=== PATIENT | female | born 1950 | race Caucasian/White ===

== ENCOUNTER 2021-08-15 11:06 | Observation (INO) ==
[2021-08-15 11:29] LABS: ABS Basophils 0.1 10^3/ul (0-0.2); ABS Eosinophils 0.3 10^3/ul (0-0.6); ABS Lymphocytes 2.2 10^3/ul (1.0-4.8); ABS Monocytes 0.9 10^3/ul (0-0.8); ABS Neutrophils 3.3 10^3/ul (1.5-7.7); Eosinophil % 5.1 %; Hematocrit 50 % (35-47); Hemoglobin 17.3 g/dL (12.0-16.0); Lymphocyte % 32.2 %; Mean Corpuscular HGB Conc 34 g/dL (31-36); Mean Corpuscular Hemoglobin 30 pg (27-31); Mean Corpuscular Volume 88 fL (80-97); Mean Platelet Volume 8.2 fL (7.4-10.4); Platelet Count 181 10^3/uL (150-450); Red Blood Count 5.67 10^6 /uL (3.70-4.87); Red Cell Distribution Width 14 % (10-15); White Blood Count 6.8 10^3/uL (3.5-10.8)
[2021-08-15 11:34] LABS: INR 0.95 (0.86-1.15)
[2021-08-15 11:54] LABS: High Sens Troponin Baseline < 3 pg/mL (<15)
[2021-08-15 12:32] LABS: ALT 23 U/L (7-52); AST 27 U/L (13-39); Albumin 4.6 g/dL (3.2-5.2); Albumin/Globulin Ratio 1.9 (1-3); Alkaline Phosphatase 66 U/L (35-149); Anion Gap 9 mmol/L (2-11); Blood Urea Nitrogen 21 mg/dL (6-24); CO2 Carbon Dioxide 26 mmol/L (22-32); Calcium 9.8 mg/dL (8.6-10.3); Chloride 105 mmol/L (101-111); Globulin 2.4 g/dL (2-4); Glucose 92 mg/dL (70-100); Potassium 4.3 mmol/L (3.5-5.0); Sodium 140 mmol/L (135-145); eGFR CKD-EPI 69.7 (>60)
[2021-08-15 12:40] LABS: TSH Ultra Thyroid Stim Horm 2.34 mcIU/mL (0.34-5.60)
[2021-08-15 12:58] LABS: High Sensitivity Troponin 1 Hr < 3 pg/mL (<15)
[2021-08-15 13:16] LABS: Magnesium 2.1 mg/dL (1.9-2.7)
[2021-08-15] MEDS ORDERED: Lactated Ringers 1000 ml BAG 1,000 ML IV ONE (13:36)
[2021-08-15] MEDS ORDERED: Perflutren Lipid Microsphere 3 ML VIAL ONE (16:32)
[2021-08-15] MEDS ORDERED: Enoxaparin 40 MG/0.4 ML SYR SUBCUT SCH (21:00)
[2021-08-16 08:35] VITALS: BP 106/66
== END 2021-08-16 09:39 | disposition home or self-care (01) ==
LOC: ED 11:06 → EDHOLD 11:06 → MEDTELE 16:12
PROVIDERS: ADMIT Hospitalist; ATTEND Hospitalist